=== PATIENT | female | born 1955 | race Caucasian/White ===

== ENCOUNTER 2020-08-16 06:12 | Emergency (ER) | payer OTHER ==
[~2020-08-16] VITALS: Ht 160 cm; Wt 108.0 kg
[2020-08-16] MEDS ORDERED: ASA81BEC PO (06:22)
[2020-08-16] MEDS ORDERED: WOMEN'S DAILY1 EACH PO (06:23)
[2020-08-16] MEDS ORDERED: VITAMIN C1000 MG PO (06:23)
[2020-08-16] MEDS ORDERED: VITAMIN D350 MCG PO (06:23)
[2020-08-16] MEDS ORDERED: COQ1050 MG PO (06:24)
[2020-08-16] MEDS ORDERED: THEANINE PO (06:25)
[2020-08-16] MEDS ORDERED: MELATONIN3 M1 PO (06:25)
[2020-08-16] MEDS ORDERED: DHEA 10 MG TAB1 EACH PO (06:26)
[2020-08-16] MEDS ORDERED: CYTOMEL50 MCG PO (06:26)
[2020-08-16] MEDS ORDERED: GLUMETZA500 PO (06:26)
[2020-08-16] MEDS ORDERED: TIROSINT137 MCG PO (06:27)
[2020-08-16] MEDS ORDERED: TOPROL XL50 MG (06:27)
[2020-08-16] MEDS ORDERED: AMBIEN5 MG PO (06:27)
[2020-08-16] MEDS ORDERED: AMLODIPINE-BEN1 EAC3 PO (06:28)
[2020-08-16] MEDS ORDERED: ZETIA10 MG PO (06:28)
[2020-08-16] MEDS ORDERED: LIPITOR80 MG PO (06:28)
[2020-08-16] MEDS ORDERED: AZITHROMYCIN500 MG PO (06:29)
[2020-08-16 06:43] LABS: BE -4.6 mmol/L (-2 to +3); PO2 80.6 mmHg (75.0-100.0); pH 7.406 (7.340-7.450)
[2020-08-16 06:52] LABS: INFLUENZA A ANTIGEN Negative (Negative); INFLUENZA B ANTIGEN Negative (Negative)
[2020-08-16 07:10] LABS: ABSOLUTE BASOPHILS 0.1 thou/uL (0.0-0.2); ABSOLUTE EOSINOPHILS 0.4 thou/uL (0.0-0.7); ABSOLUTE LYMPHOCYTES 1.5 thou/uL (0.8-5.3); ABSOLUTE MONOCYTES 1.3 thou/uL (0.0-1.2); ABSOLUTE NEUTROPHILS 14.3 thou/uL (1.6-8.1); BASOPHILS 0.5 %; HEMATOCRIT 38.9 % (37.0-47.0); LYMPHOCYTES 8.4 %; MCHC 33.4 g/dL (28.0-37.0); MONOCYTES 7.3 %; MPV 7.8 fl. (7.2-11.1); NUCLEATED RBCS 0 /100WBC; PLATELET COUNT* 325 thou/uL (150-400); POLYS 81.8 %; RBC 4.47 mil/uL (4.20-5.00); WBC 17.4 thou/uL (4.0-11.0)
[2020-08-16 07:11] LABS: CALCIUM 9.1 mg/dL (8.5-10.1); POTASSIUM 3.6 mmol/L (3.5-5.1)
[2020-08-16 07:16] LABS: ALBUMIN 3.6 g/dL (3.4-5.0); TOTAL BILIRUBIN 0.4 mg/dL (<0.1-1.0); TOTAL PROTEIN 8.3 g/dL (6.4-8.2)
[2020-08-16] MEDS ORDERED: ALBUTEROL2.5 MG/3 M NEB (08:11)
[2020-08-16] MEDS ORDERED: PREDNISONE 20 M20 M1 PO (08:11)
[2020-08-16] MEDS ORDERED: VENTOLIN HFA 1818 GM INH (08:11)
[2020-08-16 08:17] VITALS: BP 170/75
== END 2020-08-16 08:18 | disposition home or self-care (01) ==
LOC: M.ERS 06:12
PROVIDERS: Personal Emergency Response Attendant
DX: R06.02 Shortness of breath (principal); Z20.828 Contact with and (suspected) exposure to other viral communicable diseases; R05 Cough; I25.2 Old myocardial infarction; Z79.899 Other long term (current) drug therapy; Z79.82 Long term (current) use of aspirin